=== PATIENT | male | born 1990 | race Caucasian/White ===

== ENCOUNTER 2017-01-17 21:54 | Emergency (ER) | payer BC ==
[2017-01-17 22:13] VITALS: BP 143/89
--- NOTE | 2017-01-18 00:29 | EDM.PDOC ---
<Sammy Jim O - Last Filed: 01/18/17 01:25> ED HPI GENERAL MEDICAL PROBLEM - General Chief Complaint: Behavioral/Psych Stated Complaint: SUCIDAL THOUGHTS Time Seen by Provider: 01/17/17 22:20 Source of Information: Reports: Patient History Limitations: Reports: No Limitations - History of Present Illness INITIAL COMMENTS - FREE TEXT/NARRATIVE: Patient is a 27-year-old male who presents to the ED stating he wants to escape from his life. States he has a plan to escape by swallowing all his pills at home. He has quite a list of pills for many psych conditions. States he is attending college and pursuing a degree and psych. Is taking 14 credits this summer. He feels overwhelmed at this point. Denies wanting to kill himself but notes he has a past history of trying to kill himself 8 times. Last time he attempted was January 2014 to which she ingested Trileptal, Prozac, Xanax overdosing and spent 7 days in a coma. He has been evaluated by psych for different times as an inpatient status. He has been drinking some alcohol this evening. States one 16 ounce glass of vodka, or chews, and Dr. Gandhi. Denies any recreational drug use. He smokes one pack a day. Patient is a alcoholic and is being evaluated by Caesar Chiang. He also has a history of utilizing Ativan,Xanax , and opioids. Denies having any guns at home. He does have some kitchen knives present. He does have adequate support system here including friends and family. Past medical history: Bipolar, borderline personality disorder, social phobia, Agoraphobia Current medications include trazodone, amitriptyline, Abilify, Topamax, Trileptal. - Related Data Allergies Allergy/AdvReac Type Severity Reaction Status Date / Time shellfish derived Allergy Difficulty Verified 04/28/16 07:41 Breathing bupropion HCl AdvReac Seizure Verified 04/28/16 08:31 [From Wellbutrin] zolpidem tartrate AdvReac Excitabilit Verified 04/28/16 08:31 [From Ambien] y Home Meds: Home Meds ARIPiprazole [Abilify] 2 mg PO DAILY #30 tablet 04/29/16 [Rx] FLUoxetine [PROzac] 20 mg PO DAILY #30 04/29/16 [Rx] OXcarbazepine [Trileptal] 300 mg PO BID #60 tablet 04/29/16 [Rx] traZODone 50 mg PO BEDTIME #30 tablet 04/29/16 [Rx] Past Medical History HEENT History: Reports: None Cardiovascular History: Reports: Other (See Below) Other Cardiovascular History: currently admitted with a-fib but has no history of a-fib Respiratory History: Reports: Asthma, Other (See Below) Other Respiratory History: 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 is not on medications for it. Psychiatric History: Reports: Bipolar, Suicide Attempt, Other (See Below) - Infectious Disease History Infectious Disease History: Reports: Chicken Pox - Past Surgical History HEENT Surgical History: Reports: Tonsillectomy GI Surgical History: Reports: Cholecystectomy Social & Family History - Family History Family Medical History: Noncontributory Cardiac: Reports: Hypertension Oncologic: Reports: Lymphoma - Tobacco Use Smoking Status *Q: Current Every Day Smoker Years of Tobacco use: 4 Packs/Tins Daily: 1 Used Tobacco, but Quit: No Second Hand Smoke Exposure: Yes - Caffeine Use Caffeine Use: Reports: Coffee, Soda - Alcohol Use Days Per Week of Alcohol Use: 0 Number of Drinks Per Day: 3 Total Drinks Per Week: 0 - Recreational Drug Use Recreational Drug Use: No Drug Use in Last 12 Months: Yes Recreational Drug Type: Reports: Ativan, Opium, Other (see below) Recreational Drug Use Frequency: Daily - Living Situation & Occupation Living situation: Reports: Single Occupation: Employed ED ROS GENERAL - Review of Systems Review Of Systems: See Below Constitutional: Reports: No Symptoms Respiratory: Reports: No Symptoms Cardiovascular: Reports: No Symptoms GI/Abdominal: Reports: No Symptoms Musculoskeletal: Reports: No Symptoms Psychiatric: Reports: Anxiety, Depression, Suicidal Ideation. Denies: Hallucinations, Homicidal Ideation, Mood Lability ED EXAM, BEHAVIORAL HEALTH - Physical Exam Exam: See Below Exam Limited By: No Limitations General Appearance: Alert, WD/WN, No Apparent Distress Ears: Hearing Grossly Normal Nose: Normal Inspection Throat/Mouth: Normal Voice, No Airway Compromise Head: Atraumatic, Normocephalic Neck: Normal Inspection, Supple Respiratory/Chest: No Respiratory Distress, Lungs Clear, Normal Breath Sounds Cardiovascular: Normal Peripheral Pulses, Regular Rate, Rhythm Neurological: Alert, Normal Mood/Affect, Normal Cognition, No Motor/Sensory Deficits, Oriented x 3 Psychiatric: Alert, Normal Affect, Normal Cognition, Normal Mood, Oriented, Suicidal Plan. No: Homicidal Thoughts, Suicidal Thoughts, Auditory Hallucinations, Visual Hallucinations Skin Exam: Warm, Dry, Intact, Normal color COURSE, BEHAVIORAL HEALTH COMP - Course Vital Signs: Last Vital Signs Temp 97.8 F 01/17/17 22:09 Pulse 117 H 01/17/17 22:09 Resp 16 01/17/17 22:09 BP 143/89 H 01/17/17 22:09 Pulse Ox 98 01/17/17 22:09 Orders, Labs, Meds: Active Orders 24 hr Category Date Time Status EKG Documentation Completion [RC] URGENT Care 01/17/17 22:20 Active Laboratory Tests 01/17/17 01/17/17 01/17/17 Range/Units 22:30 22:30 22:30 WBC 8.64 (4.23-9.07) K/mm3 RBC 4.98 (4.63-6.08) M/mm3 Hgb 15.3 (13.7-17.5) gm/L Hct 44.0 (40.1-51.0) % MCV 88.4 (79.0-92.2) fl MCH 30.7 (25.7-32.2) pg MCHC 34.8 (32.2-35.5) g/dl RDW Std Deviation 40.4 (35.1-43.9) fL Plt Count 228 (163-337) K/mm3 MPV 11.5 (9.4-12.3) fl Neut % (Auto) 62.0 (34.0-67.9) % Lymph % (Auto) 27.2 (21.8-53.1) % Robertson % (Auto) 7.4 (5.3-12.2) % Eos % (Auto) 2.7 (0.8-7.0) Baso % (Auto) 0.5 (0.1-1.2) % Neut # (Auto) 5.36 (1.78-5.38) K/mm3 Lymph # (Auto) 2.35 (1.32-3.57) K/mm3 Robertson # (Auto) 0.64 (0.30-0.82) K/mm3 Eos # (Auto) 0.23 (0.04-0.54) K/mm3 Baso # (Auto) 0.04 (0.01-0.08) K/mm3 Sodium 140 (136-145) mEq/L Potassium 3.2 L (3.5-5.1) mEq/L Chloride 107 (98-107) mEq/L Carbon Dioxide 23 (21-32) mEq/L Anion Gap 13.2 (5-15) BUN 5 L (7-18) mg/dL Creatinine 1.0 (0.7-1.3) mg/dL Est Cr Clr Drug Dosing 105.58 mL/min Estimated GFR (MDRD) > 60 (>60) mL/min BUN/Creatinine Ratio 5.0 L (14-18) Glucose 114 H (74-106) mg/dL Calcium 8.6 (8.5-10.1) mg/dL Total Bilirubin 0.6 (0.2-1.0) mg/dL AST 30 (15-37) U/L ALT 49 (16-63) U/L Alkaline Phosphatase 73 (46-116) U/L Total Protein 7.7 (6.4-8.2) g/dl Albumin 4.5 (3.4-5.0) g/dl Globulin 3.2 gm/dL Albumin/Globulin Ratio 1.4 (1-2) TSH 3rd Generation 2.199 (0.358-3.74) uIU/mL Urine Color (Yellow) Urine Appearance (Clear) Urine pH (5.0-8.0) Ur Specific Lamar (1.005-1.030) Urine Protein (Negative) Urine Glucose (UA) (Negative) Urine Ketones (Negative) Urine Occult Blood (Negative) Urine Nitrite (Negative) Urine Bilirubin (Negative) Urine Urobilinogen (0.2-1.0) Ur Leukocyte Esterase (Negative) Salicylates (2.8-20) mg/dL Urine Opiates Screen (NEGATIVE) Ur Buprenorphine Scrn (NEGATIVE) Ur Oxycodone Screen (NEGATIVE) Urine Methadone Screen (NEGATIVE) Ur Propoxyphene Screen (NEGATIVE) Acetaminophen 0 L (10-30) ug/mL Ur Barbiturates Screen (NEGATIVE) Ur Tricyclics Screen (NEGATIVE) Ur Phencyclidine Scrn (NEGATIVE) Ur Amphetamine Screen (NEGATIVE) U Methamphetamines Scrn (NEGATIVE) U Benzodiazepines Scrn (NEGATIVE) U Cocaine Metab Screen (NEGATIVE) U Marijuana (THC) Screen (NEGATIVE) Ethyl Alcohol 0.03 (0.00) gm% 01/17/17 01/18/17 01/18/17 Range/Units 22:30 01:00 01:15 WBC (4.23-9.07) K/mm3 RBC (4.63-6.08) M/mm3 Hgb (13.7-17.5) gm/L Hct (40.1-51.0) % MCV (79.0-92.2) fl MCH (25.7-32.2) pg MCHC (32.2-35.5) g/dl RDW Std Deviation (35.1-43.9) fL Plt Count (163-337) K/mm3 MPV (9.4-12.3) fl Neut % (Auto) (34.0-67.9) % Lymph % (Auto) (21.8-53.1) % Robertson % (Auto) (5.3-12.2) % Eos % (Auto) (0.8-7.0) Baso % (Auto) (0.1-1.2) % Neut # (Auto) (1.78-5.38) K/mm3 Lymph # (Auto) (1.32-3.57) K/mm3 Robertson # (Auto) (0.30-0.82) K/mm3 Eos # (Auto) (0.04-0.54) K/mm3 Baso # (Auto) (0.01-0.08) K/mm3 Sodium (136-145) mEq/L Potassium (3.5-5.1) mEq/L Chloride (98-107) mEq/L Carbon Dioxide (21-32) mEq/L Anion Gap (5-15) BUN (7-18) mg/dL Creatinine (0.7-1.3) mg/dL Est Cr Clr Drug Dosing mL/min Estimated GFR (MDRD) (>60) mL/min BUN/Creatinine Ratio (14-18) Glucose (74-106) mg/dL Calcium (8.5-10.1) mg/dL Total Bilirubin (0.2-1.0) mg/dL AST (15-37) U/L ALT (16-63) U/L Alkaline Phosphatase (46-116) U/L Total Protein (6.4-8.2) g/dl Albumin (3.4-5.0) g/dl Globulin gm/dL Albumin/Globulin Ratio (1-2) TSH 3rd Generation (0.358-3.74) uIU/mL Urine Color Yellow (Yellow) Urine Appearance Clear (Clear) Urine pH 7.0 (5.0-8.0) Ur Specific Lamar 1.020 (1.005-1.030) Urine Protein Negative (Negative) Urine Glucose (UA) Negative (Negative) Urine Ketones Negative (Negative) Urine Occult Blood Negative (Negative) Urine Nitrite Negative (Negative) Urine Bilirubin Negative (Negative) Urine Urobilinogen 1.0 (0.2-1.0) Ur Leukocyte Esterase Negative (Negative) Salicylates 4.1 (2.8-20) mg/dL Urine Opiates Screen Negative (NEGATIVE) Ur Buprenorphine Scrn Negative (NEGATIVE) Ur Oxycodone Screen Negative (NEGATIVE) Urine Methadone Screen Negative (NEGATIVE) Ur Propoxyphene Screen Negative (NEGATIVE) Acetaminophen (10-30) ug/mL Ur Barbiturates Screen Negative (NEGATIVE) Ur Tricyclics Screen Presumptive positive H (NEGATIVE) Ur Phencyclidine Scrn Negative (NEGATIVE) Ur Amphetamine Screen Negative (NEGATIVE) U Methamphetamines Scrn Negative (NEGATIVE) U Benzodiazepines Scrn Negative (NEGATIVE) U Cocaine Metab Screen Negative (NEGATIVE) U Marijuana (THC) Screen Negative (NEGATIVE) Ethyl Alcohol (0.00) gm% Re-Assessment/Re-Exam: Initial labs and studies include CBC, chem 14, TSH, urine drug tox, EtOH, salicylates, and acetaminophen. [address] Calles with message left for hime to call the E.D. back to evaluate a patient with suicidal ideations in the ED. EKG revealed a sinus tachycardia at rate of [address] changes noted. Labs reviewed. Arranging placement. Initiated completing appropriate paperwork. Although patient voluntarily seeked helped. He has made statements that he wants to escape by taking all his medications. Patient went to the level to consume alcohol this evening and set out all his medications in preparation to take prior to seeking help. I do not believe patient is safe to be discharged home and/or be transported to a psychiatric facility with family member/friend. Patient has attempted to kill himself 8 times in the past. Four of which required inpatient treatment. Dr. Ryan has agreed to accept care since it is the end of my shift. Departure - Departure Disposition: DC/Tfer to Psych Hosp/Unit 65 Clinical Impression: Suicidal ideation Depression Qualifiers: Depression Type: other depression Qualified Code(s): F32.89 - Other specified depressive episodes - Discharge Information Forms: ED Department Discharge Additional Instructions: Zain Loredo will come to transport the patient over to [facility] for further evaluation and treatment, if the patient is required to stay in long-term for a few hours until they can find appropriate transport that will be okay, Dr. Reza is the accepting physician over at [facility] <Osei Ryan - Last Filed: 01/18/17 03:01> COURSE, BEHAVIORAL HEALTH COMP - Course Medical Clearance: 01/18/17 02:56 We spoke to the individuals at [facility] and they have agreed to accept the patient in transport for further evaluation and treatment. I spoke with [facility] they will calm to get the individual for transport to [facility]. The patient might require some time in long-term until they can get her transport [facility] but that is okay. He has been committed and this is not a voluntary committal but an involuntary committal since he is actively suicidal with a plan and he is tried to commit suicide 8 times in the past. He has been drinking some this evening but does not appear to be intoxicated. Departure - Departure Time of Disposition: 02:57 Condition: Good
== END 2017-01-18 03:50 ==
LOC: JD.ED 21:54
DX: F32.89 Other specified depressive episodes (principal); R45.851 Suicidal ideations; J45.909 Unspecified asthma, uncomplicated; F17.210 Nicotine dependence, cigarettes, uncomplicated; Z91.013 Allergy to seafood; Z79.899 Other long term (current) drug therapy; Z98.890 Other specified postprocedural states; Z90.49 Acquired absence of other specified parts of digestive tract
CPT/HCPCS: 36415; 80053; 80306; 81003; 84443; 85025; 93005; 99285; G0480; 99284

== ENCOUNTER 2017-04-15 05:34 | Emergency (ER) | payer BC ==
[2017-04-15 05:44] VITALS: BP 122/57
[2017-04-15] MEDS ORDERED: diphenhydrAMINE 50 MG Cap PO ONE (06:09)
--- NOTE | 2017-04-15 06:12 | EDM.PDOC ---
ED HPI GENERAL MEDICAL PROBLEM - General Chief Complaint: Allergic Reaction Stated Complaint: poss allergic reaction Time Seen by Provider: 04/15/17 05:44 Source of Information: Reports: Patient, RN Notes Reviewed History Limitations: Reports: No Limitations - History of Present Illness INITIAL COMMENTS - FREE TEXT/NARRATIVE: The patient states that he took a Marcelino Man multivitamin and a supplement powder around 04:15 this morning, then around 04:30 developed intense burning sensation and pruritus to his bilateral forearms and feet. The patient denies dyspnea, wheezing, or oral swelling. This is the first time that he has taken either the multivitamin or supplement. No prior similar symptoms. The patient's PCP is Madison Velásquez. Generalized Pain Score (Numeric/FACES): 4 - Related Data Allergies Allergy/AdvReac Type Severity Reaction Status Date / Time shellfish derived Allergy Difficulty Verified 04/28/16 07:41 Breathing bupropion HCl AdvReac Seizure Verified 04/28/16 08:31 [From Wellbutrin] zolpidem tartrate AdvReac Excitabilit Verified 04/28/16 08:31 [From Ambien] y Past Medical History Cardiovascular History: Reports: Afib (paroxysmal) Gastrointestinal History: Reports: GERD (untreated) Neurological History: Reports: Seizure (associated with alcohol and drug abuse) , Other (See Below) (Left footdrop) Psychiatric History: Reports: Anxiety, Depression, Panic Attack, Suicide Attempt - Infectious Disease History Infectious Disease History: Reports: Chicken Pox - Past Surgical History HEENT Surgical History: Reports: Tonsillectomy GI Surgical History: Reports: Cholecystectomy Social & Family History - Family History Family Medical History: Noncontributory Cardiac: Reports: Hypertension Oncologic: Reports: Lymphoma - Tobacco Use Smoking Status *Q: Current Every Day Smoker Years of Tobacco use: 7 Packs/Tins Daily: 1 - Caffeine Use Caffeine Use: Reports: Coffee - Alcohol Use Alcohol Use History: Yes Days Per Week of Alcohol Use: 0 Number of Drinks Per Day: 3 Total Drinks Per Week: 0 Alcohol Use Frequency: Socially - Recreational Drug Use Recreational Drug Use: Yes Drug Use in Last 12 Months: Yes Recreational Drug Type: Reports: Benzodiazepines, Oxycodone, Vicodin Recreational Drug Use Frequency: Binges - Living Situation & Occupation Living situation: Reports: Single, Alone 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) ED ROS GENERAL - Review of Systems Review Of Systems: See Below Constitutional: Reports: No Symptoms HEENT: Reports: No Symptoms Respiratory: Reports: No Symptoms Cardiovascular: Reports: No Symptoms Endocrine: Reports: No Symptoms GI/Abdominal: Reports: No Symptoms : Reports: No Symptoms Musculoskeletal: Reports: No Symptoms Skin: Reports: No Symptoms Neurological: Reports: No Symptoms Psychiatric: Reports: No Symptoms Hematologic/Lymphatic: Reports: No Symptoms Immunologic: Reports: No Symptoms ED EXAM, SKIN/RASH Exam: See Below Exam Limited By: No Limitations General Appearance: Alert, WD/WN, No Apparent Distress Eye Exam: Bilateral Eye: Normal Inspection Ears: Normal External Exam, Hearing Grossly Normal Nose: Normal Inspection, No Blood Throat/Mouth: Normal Inspection, Normal Lips, Normal Teeth, Normal Gums, Normal Oropharynx (no uvular swelling), Normal Voice, No Airway Compromise Head: Atraumatic, Normocephalic Neck: Normal Inspection, Supple, Non-Tender, Full Range of Motion. No: Lymphadenopathy (L), Lymphadenopathy (R) Respiratory/Chest: No Respiratory Distress, Lungs Clear, Normal Breath Sounds, No Accessory Muscle Use Cardiovascular: Normal Peripheral Pulses, Regular Rate, Rhythm, No Gallop, No JVD, No Murmur, No Rub Peripheral Pulses: 4+: Radial (L), Radial (R) GI/Abdominal: Normal Bowel Sounds, Soft, Non-Tender, No Organomegaly, No Distention, No Abnormal Bruit, No Mass (Male) Exam: Deferred Rectal (Males) Exam: Deferred Back Exam: Normal Inspection, Full Range of Motion, NT Extremities: Normal Inspection, Normal Range of Motion, No Pedal Edema, Normal Capillary Refill Neurological: Alert, Oriented, Normal Cognition, No Motor/Sensory Deficits Psychiatric: Normal Affect Skin: Warm, Dry, Intact, Normal Color, No Rash (No visible skin lesions, such as urticaria or erythema) Course - Vital Signs Last Recorded V/S: Last Vital Signs Temp 36.7 C 04/15/17 05:40 Pulse 92 04/15/17 05:40 Resp 18 04/15/17 05:40 BP 122/57 L 04/15/17 05:40 Pulse Ox 95 04/15/17 05:40 - Orders/Labs/Meds Meds: Medications Discontinued Medications Generic Name Dose Route Start Last Admin Trade Name Freq PRN Reason Stop Dose Admin Diphenhydramine HCl 50 mg 04/15/17 06:09 04/15/17 06:13 Benadryl PO 04/15/17 06:10 50 mg ONETIME ONE Administration - Re-Assessments/Exams Free Text/Narrative Re-Assessment/Exam: 04/15/17 06:06 The patient has localized pruritus with no visible skin eruptions. This suggests neuropathic or psychogenic itch. This is not an allergic reaction. I'm going to recommend that he take an [id number] antihistamine, apply cold packs to the affected areas, and, most importantly, discontinue taking the multivitamins and supplement. Departure - Departure Time of Disposition: :09 Disposition: Home, Self-Care 01 Condition: Good Clinical Impression: Pruritus - Discharge Information Referrals: Madison Velásquez PA [Primary Care Provider] - Forms: ED Department Discharge Additional Instructions: You were seen in the emergency room for a burning sensation and itchiness to your arms and feet. The cause of your itchiness is not clear, but it is MOST LIKELY related to your taking of the multivitamin and/or supplement. You were given Benadryl in the emergency room. If your symptoms continue, you may take [id number] Benadryl or Claritin as directed on the package. Try to avoid heat. Cold packs to affected areas may help. It is important that you DISCONTINUE taking the multivitamin and supplements. Follow-up with your PCP, Madison Velásquez, as needed. If any other problems, these do not hesitate to return to the ER.
== END 2017-04-15 06:27 | disposition home or self-care (01) ==
LOC: JD.ED 05:34
DX: L29.9 Pruritus, unspecified (principal); F17.210 Nicotine dependence, cigarettes, uncomplicated; I48.0 Paroxysmal atrial fibrillation; K21.9 Gastro-esophageal reflux disease without esophagitis; F41.0 Panic disorder [episodic paroxysmal anxiety]; F32.9 Major depressive disorder, single episode, unspecified; Z90.49 Acquired absence of other specified parts of digestive tract; Z98.890 Other specified postprocedural states; Z91.013 Allergy to seafood; Z88.8 Allergy status to other drugs, medicaments and biological substances
CPT/HCPCS: 99283; A9270; 99282

== ENCOUNTER 2017-06-11 20:18 | Emergency (ER) | payer SELFPAY ==
[2017-06-11] MEDS ORDERED: Sodium Chloride 0.9% 10 ML Syringe FLUSH PRN (20:27)
[2017-06-11] MEDS ORDERED: Sodium Chloride 0.9% 1,000 ML IV SCH (20:30)
[2017-06-11] MEDS ORDERED: Metoclopramide 10 MG/2 ML SDV IVPUSH ONE (21:27)
[2017-06-11 21:39] LABS: ACETAMINOPHEN 0 ug/mL (10-30)
--- NOTE | 2017-06-11 22:28 | EDM.PDOCBH ---
ED HPI GENERAL MEDICAL PROBLEM - General Chief Complaint: Behavioral/Psych Stated Complaint: DIPTI ANTHONY Time Seen by Provider: 06/11/17 20:23 Source of Information: Reports: Patient, EMS History Limitations: Reports: Intoxication - History of Present Illness INITIAL COMMENTS - FREE TEXT/NARRATIVE: The patient presents by [facility] for an overdose. He took abilify, lexapro and zofran. There was a total of 30 pills of all of them. He did not want to hurt himself he just wanted to get away for awhile. He was also drinking alcohol. He has tried to hurt himself in the past. He has a history of depression and he sees a psychologist for that. He did not cut himself or do anything else. He has no other medical problems. He did this at 1945. EMS gave him some activated charcoal to drink. He says he feels sleepy now. Onset: Sudden Duration: Minutes: (45) Severity: Moderate Improves with: Reports: None Worsens with: Reports: None Associated Symptoms: Reports: No Other Symptoms Treatments [employer]NCIL DIRECTOR: Reports: Other (see below) Other Treatments [employer]UM[employer] COUNCIL DIRECTOR: charcoal - Related Data Allergies Allergy/AdvReac Type Severity Reaction Status Date / Time shellfish derived Allergy Difficulty Verified 04/28/16 07:41 Breathing bupropion HCl AdvReac Seizure Verified 04/28/16 08:31 [From Wellbutrin] zolpidem tartrate AdvReac Excitabilit Verified 04/28/16 08:31 [From Ambien] y Home Meds: Home Meds ARIPiprazole [Abilify] 10 mg PO DAILY 06/11/17 [History] Aspirin [Halfprin] 81 mg PO ASDIRECTED PRN 06/11/17 [History] Escitalopram [Lexapro] 10 mg PO BEDTIME 06/11/17 [History] Ondansetron [Zofran] 4 mg PO TID PRN 06/11/17 [History] traZODone 100 mg PO BEDTIME 06/11/17 [History] Past Medical History HEENT History: Reports: None Cardiovascular History: Reports: Afib Other Cardiovascular History: currently admitted with a-fib but has no history of a-fib Respiratory History: Reports: Asthma Other Respiratory History: 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 is not on medications for it. Psychiatric History: Reports: Addiction, Anxiety, Depression, Panic Attack, Suicide Attempt - Infectious Disease History Infectious Disease History: Reports: Chicken Pox - Past Surgical History HEENT Surgical History: Reports: Tonsillectomy GI Surgical History: Reports: Cholecystectomy Social & Family History - Family History Family Medical History: Noncontributory Cardiac: Reports: Hypertension Oncologic: Reports: Lymphoma - Tobacco Use Smoking Status *Q: Current Every Day Smoker Years of Tobacco use: 4 Packs/Tins Daily: 1 Used Tobacco, but Quit: No Second Hand Smoke Exposure: Yes - Caffeine Use Caffeine Use: Reports: Coffee, Energy Drinks, Soda, Tea - Alcohol Use Days Per Week of Alcohol Use: 0 Number of Drinks Per Day: 3 Total Drinks Per Week: 0 - Recreational Drug Use Recreational Drug Use: Yes Drug Use in Last 12 Months: Yes Recreational Drug Type: Reports: Benzodiazepines, Oxycodone, Vicodin Recreational Drug Use Frequency: Binges - Living Situation & Occupation Living situation: Reports: Single, Alone 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) ED ROS GENERAL - Review of Systems Review Of Systems: See Below Constitutional: Reports: No Symptoms HEENT: Reports: No Symptoms Respiratory: Reports: No Symptoms Cardiovascular: Reports: No Symptoms Endocrine: Reports: No Symptoms GI/Abdominal: Reports: No Symptoms : Reports: No Symptoms Musculoskeletal: Reports: No Symptoms ED EXAM, BEHAVIORAL HEALTH - Physical Exam Exam: See Below Exam Limited By: No Limitations General Appearance: Alert, No Apparent Distress Ears: Normal External Exam Nose: Normal Inspection Head: Atraumatic, Normocephalic Neck: Normal Inspection Respiratory/Chest: No Respiratory Distress, Lungs Clear, Normal Breath Sounds Cardiovascular: Regular Rate, Rhythm, No Edema, No Murmur GI/Abdominal: Soft, Non-Tender, No Organomegaly, No Mass Extremities: Normal Inspection Neurological: Alert, No Motor/Sensory Deficits, Oriented x 3 EKG INTERPRETATION EKG Date: 06/11/17 Time: 20:41 Rhythm: NSR Rate (Beats/Min): 96 [place]: Normal P-Wave: Present QRS: Normal ST-T: Normal QT: Normal COURSE, BEHAVIORAL HEALTH COMP - Course Vital Signs: Last Vital Signs Temp 99.3 F 06/11/17 20:30 Pulse 110 H 06/11/17 20:30 Resp 28 H 06/11/17 20:30 BP 135/83 06/11/17 20:30 Pulse Ox 96 06/11/17 20:30 Orders, Labs, Meds: Active Orders 24 hr Category Date Time Status Cardiac Monitoring [RC] . DIRECTED Care 06/11/17 20:28 Active EKG Documentation Completion [RC] ASDIRECTED Care 06/11/17 21:29 Active EKG Documentation Completion [RC] ASDIRECTED Care 06/12/17 00:17 Active EKG Documentation Completion [RC] STAT Care 06/11/17 20:29 Active Peripheral IV Care [RC] . DIRECTED Care 06/11/17 20:29 Active Sodium Chloride 0.9% [Normal Saline] 1,000 ml Med 06/11/17 20:30 Active IV ASDIRECTED Sodium Chloride 0.9% [Saline Flush] Med 06/11/17 20:27 Active 10 ml FLUSH ASDIRECTED PRN Peripheral IV Insertion Adult [OM.PC] Stat Oth 06/11/17 20:27 Ordered EKG 12 Lead [EK] Stat Ther 06/11/17 21:29 Ordered EKG 12 Lead [EK] Stat Ther 06/12/17 00:17 Ordered Medication Orders Sodium Chloride (Normal Saline) 1,000 mls @ 125 mls/hr IV ASDIRECTED SU Last Admin: 06/11/17 20:58 Dose: 125 mls/hr Sodium Chloride (Saline Flush) 10 ml FLUSH ASDIRECTED PRN PRN Reason: Keep Vein Open Last Admin: 06/11/17 20:58 Dose: 10 ml Laboratory Tests 06/11/17 06/11/17 06/11/17 Range/Units 20:50 20:55 20:55 WBC 8.17 (4.23-9.07) K/mm3 RBC 4.95 (4.63-6.08) M/mm3 Hgb 14.7 (13.7-17.5) gm/L Hct 42.9 (40.1-51.0) % MCV 86.7 (79.0-92.2) fl MCH 29.7 (25.7-32.2) pg MCHC 34.3 (32.2-35.5) g/dl RDW Std Deviation 39.8 (35.1-43.9) fL Plt Count 207 (163-337) K/mm3 MPV 10.3 (9.4-12.3) fl Neut % (Auto) 50.3 (34.0-67.9) % Lymph % (Auto) 37.3 (21.8-53.1) % [place] % (Auto) 8.9 (5.3-12.2) % Eos % (Auto) 2.8 (0.8-7.0) Baso % (Auto) 0.6 (0.1-1.2) % Neut # (Auto) 4.10 (1.78-5.38) K/mm3 Lymph # (Auto) 3.05 (1.32-3.57) K/mm3 [place] # (Auto) 0.73 (0.30-0.82) K/mm3 Eos # (Auto) 0.23 (0.04-0.54) K/mm3 Baso # (Auto) 0.05 (0.01-0.08) K/mm3 Manual Slide Review Abnormal smear Sodium 142 (136-145) mEq/L Potassium 3.3 L (3.5-5.1) mEq/L Chloride 104 (98-107) mEq/L Carbon Dioxide 26 (21-32) mEq/L Anion Gap 15.3 H (5-15) BUN 13 (7-18) mg/dL Creatinine 0.9 (0.7-1.3) mg/dL Est Cr Clr Drug Dosing 117.31 mL/min Estimated GFR (MDRD) > 60 (>60) mL/min BUN/Creatinine Ratio 14.4 (14-18) Glucose 90 (74-106) mg/dL Calcium 9.0 (8.5-10.1) mg/dL Total Bilirubin 0.7 (0.2-1.0) mg/dL AST 33 (15-37) U/L ALT 55 (16-63) U/L Alkaline Phosphatase 60 (46-116) U/L Total Protein 7.5 (6.4-8.2) g/dl Albumin 4.2 (3.4-5.0) g/dl Globulin 3.3 gm/dL Albumin/Globulin Ratio 1.3 (1-2) Salicylates (2.8-20) mg/dL Urine Opiates Screen Negative (NEGATIVE) Ur Buprenorphine Scrn Negative (NEGATIVE) Ur Oxycodone Screen Negative (NEGATIVE) Urine Methadone Screen Negative (NEGATIVE) Ur Propoxyphene Screen Negative (NEGATIVE) Acetaminophen 0 L (10-30) ug/mL Ur Barbiturates Screen Negative (NEGATIVE) Ur Tricyclics Screen Negative (NEGATIVE) Ur Phencyclidine Scrn Negative (NEGATIVE) Ur Amphetamine Screen Negative (NEGATIVE) U Methamphetamines Scrn Negative (NEGATIVE) U Benzodiazepines Scrn Negative (NEGATIVE) U Cocaine Metab Screen Negative (NEGATIVE) U Marijuana (THC) Screen Negative (NEGATIVE) Ethyl Alcohol 0.15 (0.00) gm% 06/11/17 06/12/17 Range/Units 20:55 05:28 WBC (4.23-9.07) K/mm3 RBC (4.63-6.08) M/mm3 Hgb (13.7-17.5) gm/L Hct (40.1-51.0) % MCV (79.0-92.2) fl MCH (25.7-32.2) pg MCHC (32.2-35.5) g/dl RDW Std Deviation (35.1-43.9) fL Plt Count (163-337) K/mm3 MPV (9.4-12.3) fl Neut % (Auto) (34.0-67.9) % Lymph % (Auto) (21.8-53.1) % [place] % (Auto) (5.3-12.2) % Eos % (Auto) (0.8-7.0) Baso % (Auto) (0.1-1.2) % Neut # (Auto) (1.78-5.38) K/mm3 Lymph # (Auto) (1.32-3.57) K/mm3 [place] # (Auto) (0.30-0.82) K/mm3 Eos # (Auto) (0.04-0.54) K/mm3 Baso # (Auto) (0.01-0.08) K/mm3 Manual Slide Review Sodium (136-145) mEq/L Potassium (3.5-5.1) mEq/L Chloride (98-107) mEq/L Carbon Dioxide (21-32) mEq/L Anion Gap (5-15) BUN (7-18) mg/dL Creatinine (0.7-1.3) mg/dL Est Cr Clr Drug Dosing mL/min Estimated GFR (MDRD) (>60) mL/min BUN/Creatinine Ratio (14-18) Glucose (74-106) mg/dL Calcium (8.5-10.1) mg/dL Total Bilirubin (0.2-1.0) mg/dL AST (15-37) U/L ALT (16-63) U/L Alkaline Phosphatase (46-116) U/L Total Protein (6.4-8.2) g/dl Albumin (3.4-5.0) g/dl Globulin gm/dL Albumin/Globulin Ratio (1-2) Salicylates 2.6 L 1.5 L (2.8-20) mg/dL Urine Opiates Screen (NEGATIVE) Ur Buprenorphine Scrn (NEGATIVE) Ur Oxycodone Screen (NEGATIVE) Urine Methadone Screen (NEGATIVE) Ur Propoxyphene Screen (NEGATIVE) Acetaminophen (10-30) ug/mL Ur Barbiturates Screen (NEGATIVE) Ur Tricyclics Screen (NEGATIVE) Ur Phencyclidine Scrn (NEGATIVE) Ur Amphetamine Screen (NEGATIVE) U Methamphetamines Scrn (NEGATIVE) U Benzodiazepines Scrn (NEGATIVE) U Cocaine Metab Screen (NEGATIVE) U Marijuana (THC) Screen (NEGATIVE) Ethyl Alcohol (0.00) gm% Medications Generic Name Dose Route Start Last Admin Trade Name Freq PRN Reason Stop Dose Admin Sodium Chloride 1,000 mls @ 125 mls/hr 06/11/17 20:30 06/11/17 20:58 Normal Saline IV 125 mls/hr ASDIRECTED SU Administration Sodium Chloride 10 ml 06/11/17 20:27 06/11/17 20:58 Saline Flush FLUSH 10 ml ASDIRECTED PRN Administration Keep Vein Open Discontinued Medications Generic Name Dose Route Start Last Admin Trade Name Freq PRN Reason Stop Dose Admin Metoclopramide HCl 10 mg 06/11/17 21:27 06/11/17 22:09 Reglan IVPUSH 06/11/17 21:28 10 mg ONETIME ONE Administration Re-Assessment/Re-Exam: I ordered an IV NS, labs, UDS, and EKG. His EKG shows a NSR with no acute changes. His CBC was negative. His K was a little low at 3.3. His salicylated were normal at 2.6. His tylenol was negative. His UDS was negative. His ETOH was elevated at 0.15. I will observe him for awhile in the ER. My nurse noticed his rhythm changes and he went into A-fib at a rate of 103 with no acute changes. He has a history of it. He converted to a NSR with no acute changes. Poison control wanted a repeat aspirin level and that was normal. I will discharge him home. Departure - Departure Time of Disposition: 06:55 Disposition: Home, Self-Care 01 Condition: Good Clinical Impression: Alcohol abuse Accidental drug overdose Qualifiers: Encounter type: initial encounter Qualified Code(s): T50.901A - Poisoning by unspecified drugs, medicaments and biological substances, accidental ( unintentional), initial encounter - Discharge Information Referrals: Madison Velásquez PA [Primary Care Provider] - 1 Week Forms: ED Department Discharge Additional Instructions: Take your medication as prescribed. Follow up with your psychologist and provider. Please return if worse. - My Orders Last 24 Hours: My Active Orders 06/11/17 20:27 Sodium Chloride 0.9% [Saline Flush] 10 ml FLUSH ASDIRECTED PRN Peripheral IV Insertion Adult [OM.PC] Stat 06/11/17 20:28 Cardiac Monitoring [RC] . DIRECTED 06/11/17 20:29 EKG Documentation Completion [RC] STAT Peripheral IV Care [RC] . DIRECTED 06/11/17 20:30 Sodium Chloride 0.9% [Normal Saline] 1,000 ml IV ASDIRECTED 06/11/17 21:29 EKG Documentation Completion [RC] ASDIRECTED EKG 12 Lead [EK] Stat 06/12/17 00:17 EKG Documentation Completion [RC] ASDIRECTED EKG 12 Lead [EK] Stat - Assessment/Plan Last 24 Hours: My Active Orders 06/11/17 20:27 Sodium Chloride 0.9% [Saline Flush] 10 ml FLUSH ASDIRECTED PRN Peripheral IV Insertion Adult [OM.PC] Stat 06/11/17 20:28 Cardiac Monitoring [RC] . DIRECTED 06/11/17 20:29 EKG Documentation Completion [RC] STAT Peripheral IV Care [RC] . DIRECTED 06/11/17 20:30 Sodium Chloride 0.9% [Normal Saline] 1,000 ml IV ASDIRECTED 06/11/17 21:29 EKG Documentation Completion [RC] ASDIRECTED EKG 12 Lead [EK] Stat 06/12/17 00:17 EKG Documentation Completion [RC] ASDIRECTED EKG 12 Lead [EK] Stat
[2017-06-12 08:09] VITALS: BP 122/60
== END 2017-06-12 07:18 | disposition home or self-care (01) ==
LOC: SUPCPDRO 20:18 → JD.ED 20:18
DX: T45.0X1A Poisoning by antiallergic and antiemetic drugs, accidental (unintentional), initial encounter (principal); T43.221A Poisoning by selective serotonin reuptake inhibitors, accidental (unintentional), initial encounter; T43.591A Poisoning by other antipsychotics and neuroleptics, accidental (unintentional), initial encounter; F10.10 Alcohol abuse, uncomplicated; K21.9 Gastro-esophageal reflux disease without esophagitis; F41.0 Panic disorder [episodic paroxysmal anxiety]; F32.9 Major depressive disorder, single episode, unspecified; F17.210 Nicotine dependence, cigarettes, uncomplicated; Z79.82 Long term (current) use of aspirin; Z79.899 Other long term (current) drug therapy; Y90.0 Blood alcohol level of less than 20 mg/100 ml
CPT/HCPCS: 36415; 80053; 80306; 85025; 93005; 96361; 96374; 99285; G0480; J2765; J7040; J7050; 93010

== ENCOUNTER 2017-11-20 19:55 | Emergency (ER) | payer BC ==
[2017-11-20 20:04] VITALS: BP 174/71
--- NOTE | 2017-11-20 20:24 | EDM.PDOCBH ---
ED HPI GENERAL MEDICAL PROBLEM - General Chief Complaint: Behavioral/Psych Stated Complaint: SUICIDE THOUGHTS Time Seen by Provider: 11/20/17 20:08 Source of Information: Reports: Patient History Limitations: Reports: No Limitations - History of Present Illness INITIAL COMMENTS - FREE TEXT/NARRATIVE: The patient states that he has a history of depression, anxiety, and bipolar affect disorder. He has attempted suicide on several occasions in the past, once seriously, and has been psychiatrically hospitalized 4 or 5 times for depression and suicidal ideation. He states that he has been feeling depressed, although not exactly suicidal, this week. He states that he has no plan, and does not feel that he needed psychiatric admission. Ordinarily, he would talk to his counselor, Caesar Chiang, however, she is currently out of town. He has an appointment to see his Psychiatrist, Dr. Alyssa Kellogg, on Saturday, November 25, 2017. The patient acknowledges that he has a history of both drug and alcohol abuse. He states that he drank a couple margaritas and a beer earlier tonight. No recent illnesses. - Related Data Allergies Allergy/AdvReac Type Severity Reaction Status Date / Time shellfish derived Allergy Difficulty Verified 11/20/17 20:04 Breathing bupropion HCl AdvReac Seizure Verified 11/20/17 20:04 [From Wellbutrin] zolpidem tartrate AdvReac Excitabilit Verified 11/20/17 20:04 [From Ambien] y Home Meds: Home Meds ARIPiprazole [Abilify] 5 mg PO DAILY 06/11/17 [History] Escitalopram [Lexapro] 10 mg PO BEDTIME 06/11/17 [History] traZODone 100 mg PO BEDTIME 06/11/17 [History] Past Medical History Cardiovascular History: Reports: Afib (paroxysmal) Respiratory History: Reports: Asthma (exercise-induced) Gastrointestinal History: Reports: GERD Neurological History: Reports: Seizure (Alcohol and drug related) Psychiatric History: Reports: Addiction, Anxiety, Bipolar, Depression, Panic Attack, Suicide Attempt - Infectious Disease History Infectious Disease History: Reports: Chicken Pox - Past Surgical History HEENT Surgical History: Reports: Tonsillectomy GI Surgical History: Reports: Cholecystectomy Social & Family History - Family History Family Medical History: Noncontributory Cardiac: Reports: Hypertension Oncologic: Reports: Lymphoma - Tobacco Use Smoking Status *Q: Current Every Day Smoker Years of Tobacco use: 5 Packs/Tins Daily: 0.8 - Caffeine Use Caffeine Use: Reports: Coffee - Alcohol Use Alcohol Use History: Yes Days Per Week of Alcohol Use: 0 Number of Drinks Per Day: 3 Total Drinks Per Week: 0 Alcohol Use Frequency: Binges - Recreational Drug Use Recreational Drug Use: Yes Drug Use in Last 12 Months: Yes Recreational Drug Type: Reports: Benzodiazepines (last around 2014), Other (see below) (Opioids - last around 2015) Recreational Drug Use Frequency: Binges - Living Situation & Occupation Living situation: Reports: Single, Alone 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 ED EXAM, BEHAVIORAL HEALTH - Physical Exam Exam: See Below Exam Limited By: No Limitations General Appearance: Alert, WD/WN, No Apparent Distress Ears: Normal External Exam, Hearing Grossly Normal Nose: Normal Inspection, No Blood Throat/Mouth: Normal Inspection, Normal Lips, Normal Voice, No Airway Compromise Head: Atraumatic, Normocephalic Neck: Normal Inspection, Full Range of Motion Respiratory/Chest: No Respiratory Distress, Lungs Clear, Normal Breath Sounds, No Accessory Muscle Use Cardiovascular: Normal Peripheral Pulses, Regular Rate, Rhythm, No Gallop, No JVD, No Murmur, No Rub GI/Abdominal: Normal Bowel Sounds, Soft, No Organomegaly, No Distention, No Abnormal Bruit, No Mass (Male) Exam: Deferred Rectal (Males) Exam: Deferred Back Exam: Normal Inspection, Full Range of Motion, NT Extremities: Normal Inspection, Normal Range of Motion, No Pedal Edema, Normal Capillary Refill Neurological: Alert, Normal Cognition, No Motor/Sensory Deficits, Oriented x 3 Psychiatric: Normal Affect, Tearful (occasionally), Suicidal Thoughts. No: Non- Communicative, Poor Eye Contact, Uncooperative, Withdrawn, Flight of Ideas, Suicidal Plan, Auditory Hallucinations, Visual Hallucinations Skin Exam: Warm, Dry, Intact, Normal color, No rash COURSE, BEHAVIORAL HEALTH COMP - Course Vital Signs: Last Vital Signs Temp 37.3 C 11/20/17 20:01 Pulse 118 H 11/20/17 20:01 Resp 16 11/20/17 20:01 BP 174/71 H 11/20/17 20:01 Pulse Ox 99 11/20/17 20:01 Medical Clearance: 11/20/17 20:24 As the patient is not actively suicidal, and does not himself feel that he needs psychiatric admission, there is no indication for emergency psychiatric admission, therefore medical clearance is not required. We will attempt to reach Dr. Calles - perhaps he will be able to talk with the patient. 11/20/17 20:[address] Calles at 20:31. He will Skype in to conduct a face-to- face interview with the patient in about 15 minutes. 11/20/17 21:[address] Calles at 21:17. He just finished talking with the patient. He does not feel that the patient requires psychiatric hospitalization. He recommends that we increase the patient's Abilify from 5 mg daily to 10 mg daily, the Lexapro from 10 mg QHS to 20 mg QHS, and the trazodone from 100 mg QHS to 150 mg QHS. I will need to talk to the patient to see if he needs refills of any of these meds to last him until he sees his Psychiatrist on 11/25/2017. 11/20/17 21:22 The patient states that he has enough of his medications to last until he sees his Psychiatrist on November 25. I will discharge him home. Departure - Departure Time of Disposition: 21:23 Disposition: Home, Self-Care 01 Condition: Fair Clinical Impression: Depression Qualifiers: Depression Type: other depression Qualified Code(s): F32.89 - Other specified depressive episodes - Discharge Information Referrals: Margarito Nielsen [Primary Care Provider] - Alyssa Kellogg MD [Ordering Only Provider] - Forms: ED Department Discharge Additional Instructions: You were seen in the emergency room for feeling depressed. You were able to talk with Dr. Calles over Skype. He recommends that you: Increase your Abilify from 5 mg daily to 10 mg daily Increase your Lexapro from 10 mg at bedtime to 20 mg at bedtime Increase your trazodone from 100 mg at bedtime to 150 mg at bedtime Follow-up with your Psychiatrist, Dr. Kellogg, at your previously scheduled appointment on November 25, 2017. If any other problems, including worsening depression or suicidal ideation, please do not hesitate to return to the ER.
== END 2017-11-20 21:39 | disposition home or self-care (01) ==
LOC: JD.ED 19:55
DX: F32.89 Other specified depressive episodes (principal); J45.909 Unspecified asthma, uncomplicated; F17.210 Nicotine dependence, cigarettes, uncomplicated; Z91.013 Allergy to seafood; Z88.8 Allergy status to other drugs, medicaments and biological substances; Z79.899 Other long term (current) drug therapy
CPT/HCPCS: 99283; 99285

== ENCOUNTER 2018-01-30 10:57 | Emergency (ER) | payer BC ==
[2018-01-30 11:15] VITALS: BP 156/76
[2018-01-30] MEDS ORDERED: Haloperidol Lactate 5 MG/ML SDV IM ONE (11:36)
[2018-01-30] MEDS ORDERED: Ondansetron 4 MG/2 ML SDV IVPUSH ONE (11:36)
[2018-01-30] MEDS ORDERED: Benztropine 1 MG Tab PO STA (11:36)
--- NOTE | 2018-01-30 11:40 | EDM.PDOC ---
ED HPI GENERAL MEDICAL PROBLEM - General Chief Complaint: Headache Stated Complaint: HEADACHE x 4 DAYS Time Seen by Provider: 01/30/18 11:17 Source of Information: Reports: Patient History Limitations: Reports: No Limitations - History of Present Illness INITIAL COMMENTS - FREE TEXT/NARRATIVE: The patient states that he has had a headache for the past 4 days. It is felt across his forehead, and the patient describes it as a constant throbbing. He states that at this time it is not severe, although at times it is. He states that he has had nausea and dry heaves. He denies photophobia. He states that he has slight photophobia. No visual changes, such as blurry vision, wavy lines, or flashes of light. No neuro symptoms, such as tingling, numbness, or weakness. The patient states that he has a history of migraines, but that this headache is different than those. Upon closer questioning, however, the patient states that he had been prescribed Imitrex for his previous migraines, which he admits did not help his headaches, other than to make him sick to his stomach, suggesting that the previous headaches that the patient referred to as migraines , may not have been migraines. The patient states that he took one tablet of Advil yesterday, then another one last evening. He states that he was seen at the walk-in clinic yesterday, and given 2 injections - one of Toradol, and another of a nausea medicine, then instructed that if that did not work, to "go to the ER". The last imaging study of the patient's head was around 2013. The patient's PCP is Dr. Nielsen. Frontal Headache Pain Score (Numeric/FACES): 2 - Related Data Allergies Allergy/AdvReac Type Severity Reaction Status Date / Time shellfish derived Allergy Difficulty Verified 11/20/17 20:04 Breathing bupropion HCl AdvReac Seizure Verified 11/20/17 20:04 [From Wellbutrin] zolpidem tartrate AdvReac Excitabilit Verified 11/20/17 20:04 [From Ambien] y Home Meds: Home Meds ARIPiprazole [Abilify] 5 mg PO DAILY 06/11/17 [History] Escitalopram [Lexapro] 10 mg PO BEDTIME 06/11/17 [History] traZODone 100 mg PO BEDTIME 06/11/17 [History] Rizatriptan Benzoate [Rizatriptan] 1 tab PO Q2H PRN #3 tab.rapdis 01/30/18 [Rx] Past Medical History Cardiovascular History: Reports: Afib (paroxysmal) Respiratory History: Reports: Asthma (exercise-induced) Gastrointestinal History: Reports: GERD Neurological History: Reports: Migraines, Seizure (alcohol & drug related), Other (See Below) (Left footdrop x 2014 ICU admission) Psychiatric History: Reports: Addiction (Alcohol, benzodiazepines), Anxiety, Bipolar, Depression, Panic Attack, Suicide Attempt - Infectious Disease History Infectious Disease History: Reports: Chicken Pox - Past Surgical History HEENT Surgical History: Reports: Tonsillectomy GI Surgical History: Reports: Cholecystectomy Social & Family History - Family History Family Medical History: Noncontributory Cardiac: Reports: Hypertension Oncologic: Reports: Lymphoma - Tobacco Use Smoking Status *Q: Current Every Day Smoker Years of Tobacco use: 8 Packs/Tins Daily: 1 - Caffeine Use Caffeine Use: Reports: Coffee, Soda - Alcohol Use Alcohol Use History: Yes Date/Time of Last Drink Comment: Alcoholic. Last drink around September 2017 Alcohol Use Frequency: Binges - Recreational Drug Use Recreational Drug Use: Yes Drug Use in Last 12 Months: No Recreational Drug Type: Reports: Benzodiazepines (last abuse around 2014) - Living Situation & Occupation Living situation: Reports: Single, Alone Occupation: Employed ([employer]) ED ROS GENERAL - Review of Systems Review Of Systems: ROS reveals no pertinent complaints other than HPI. - Physical Exam Exam: See Below Exam Limited By: No Limitations General Appearance: Alert, WD/WN, No Apparent Distress Eye Exam: Bilateral Eye: EOMI, Normal Inspection, PERRL Ears: Normal External Exam, Normal Canal, Hearing Grossly Normal Nose: Normal Inspection, Normal Mucosa, No Blood Throat/Mouth: Normal Inspection, Normal Lips, Normal Teeth, Normal Gums, Normal Oropharynx, Normal Voice, No Airway Compromise Head Exam: Atraumatic, Normocephalic Neck: Normal Inspection, Supple, Non-Tender, Full Range of Motion. No: Lymphadenopathy (L), Lymphadenopathy (R) Respiratory/Chest: No Respiratory Distress, Lungs Clear, Normal Breath Sounds, No Accessory Muscle Use Cardiovascular: Normal Peripheral Pulses, Regular Rate, Rhythm, No Edema, No Gallop, No JVD, No Murmur, No Rub GI/Abdominal: Normal Bowel Sounds, Soft, Non-Tender, No Organomegaly, No Distention, No Abnormal Bruit, No Mass (Male) Exam: Deferred Rectal (Males) Exam: Deferred Neuro Exam (Abbreviated): Alert, Oriented, CN II-XII Intact, Normal Cognition, No Motor/Sensory Deficits, Other (Left foot drop) Back Exam: Normal Inspection, Full Range of Motion, NT Extremities: Normal Inspection, Normal Range of Motion, No Pedal Edema, Normal Capillary Refill Psychiatric: Normal Affect Skin Exam: Warm, Dry, Intact, Normal Color, No Rash Course - Vital Signs Last Recorded V/S: Last Vital Signs Temp 37.1 C 01/30/18 11:14 Pulse 104 H 01/30/18 11:14 Resp 20 01/30/18 11:14 BP 156/76 H 01/30/18 11:14 Pulse Ox 99 01/30/18 11:14 - Orders/Labs/Meds Meds: Medications Discontinued Medications Generic Name Dose Route Start Last Admin Trade Name Mahsa PRN Reason Stop Dose Admin Benztropine Mesylate 1 mg 01/30/18 11:36 01/30/18 11:58 Cogentin PO 01/30/18 11:37 1 mg ONETIME STA Administration Haloperidol Lactate 5 mg 01/30/18 11:36 01/30/18 11:59 Haldol IM 01/30/18 11:37 5 mg ONETIME ONE Administration Sodium Chloride 1,000 mls @ 150 mls/hr 01/30/18 11:45 01/30/18 11:58 Normal Saline IV 150 mls/hr ASDIRECTED SU Administration Ondansetron HCl 4 mg 01/30/18 11:36 01/30/18 11:58 Zofran IVPUSH 01/30/18 11:37 4 mg ONETIME ONE Administration - Re-Assessments/Exams Free Text/Narrative Re-Assessment/Exam: 01/30/18 11:38 By history, most of the headaches that the patient gets, which are adequately treated with Advil, and not with responsive to Imitrex, are not migraines, however, the patient describes an episode about 2 months ago where he developed tingling and numbness to the right side his body, followed by headache, which is very compelling for a migraine. The headache that the patient currently presents with has minimal features consistent with a migraine, however, I think it would be worthwhile treating the patient for migraine with IM Haldol, and if that is effective, the patient can be discharged home with a prescription form [facility]. As it has been over one year since the last imaging study of his head, I have ordered a CT scan of his head. 01/30/18 12:24 CT of the head without contrast is read by [facility] as "normal." 01/30/18 12:28 The patient states that he feels much better following IM Haldol. This strongly supports the contention that the patient's headache is migrainous in etiology. I will discharge the patient home with a prescription for rizatriptan. Departure - Departure Time of Disposition: 12:29 Disposition: Home, Self-Care 01 Condition: Good Clinical Impression: Migraine headache without aura - Discharge Information Prescriptions: Rizatriptan Benzoate [Rizatriptan] 1 tab PO Q2H PRN #3 tab.rapdis PRN Reason: Headache Instructions: Migraine Headache, [id number] Referrals: Margarito Nielsen [Primary Care Provider] - Forms: ED Department Discharge, ED Return to Work/School Form Additional Instructions: You were seen in the emergency room for 4 days of a headache with nausea and vomiting. Workup in the ER included a CT scan of your head, which returned as normal. You were treated with IM Haldol, in addition to oral Cogentin, IV Zofran, and IV fluid. Your headache significantly improved following the IM Haldol, indicating that your headache was a migraine. Get plenty of rest today in a dark, quiet place. Stay well hydrated. You may resume your usual activities tomorrow. A note for work for today has been provided. A prescription for the anti-migraine medicine [facility] (rizatriptan) has been sent to [facility]. Dissolve 1 tablet in your mouth at the earliest onset of migraine symptoms. You may repeat after 2 hours, to a maximum of 3 tablets within 24 hours. If this medicine is effective in treating your migraines, you may get additional prescriptions from your PCP, Dr. Nielsen. If any other problems, please do not hesitate to return to the ER.
[2018-01-30] MEDS ORDERED: Sodium Chloride 0.9% 1,000 ML IV SCH (11:45)
--- NOTE | 2018-01-30 15:03 | CT ---
Head CT Technique: Multiple axial sections through the brain were obtained. Intravenous contrast was not utilized. Arian: No prior head CT exam. Findings: Ventricles along with basal cisterns and sulci over the convexities are within normal limits for the patient's age. No abnormal parenchymal densities are seen. No evidence of intracranial hemorrhage. No midline shift or mass effect is seen. Bone window settings were reviewed which show no acute calvarial abnormality. Visualized sinuses are clear. Impression: 1. Nothing acute is seen on noncontrast head CT study. Diagnostic code #1 I agree with preliminary report from [facility], finalized at 01/30/18, 1:11 PM Central Time
== END 2018-01-30 12:50 | disposition home or self-care (01) ==
LOC: JD.ED 10:57
DX: G43.009 Migraine without aura, not intractable, without status migrainosus (principal); J45.909 Unspecified asthma, uncomplicated; K21.9 Gastro-esophageal reflux disease without esophagitis; F17.210 Nicotine dependence, cigarettes, uncomplicated; Z91.013 Allergy to seafood; Z88.8 Allergy status to other drugs, medicaments and biological substances; Z79.899 Other long term (current) drug therapy
CPT/HCPCS: 70450; 96361; 96372; 96374; 99284; A9270; J1630; J2405; J7040

== ENCOUNTER 2018-10-06 18:19 | Emergency (ER) | payer BC, OTHER ==
[2018-10-06 18:34] VITALS: BP 115/75
[2018-10-06] MEDS ORDERED: Ibuprofen 600 MG Tab PO ONE (19:41)
[2018-10-06] MEDS ORDERED: Orphenadrine 100 MG Tab.ER PO STA (19:41)
--- NOTE | 2018-10-06 19:45 | EDM.PDOC ---
ED HPI GENERAL MEDICAL PROBLEM - General Chief Complaint: Head Injury Stated Complaint: HEAD INJURY Time Seen by Provider: 10/06/18 19:10 Source of Information: Reports: Patient, RN Notes Reviewed History Limitations: Reports: No Limitations - History of Present Illness INITIAL COMMENTS - FREE TEXT/NARRATIVE: The patient states that he was struck by a large piece of ice that fell off the roof of his place of work - he estimates about a 10 foot drop - around 13:30 this afternoon as he was returning from lunch. He states that he was not knocked unconscious, and did not fall to the ground, but that ever since he was struck, he has had a headache - a pressure and stinging sensation - felt to the top of his head, where he was struck. He states that he is not confused, but that his thinking seems slower. He denies any other symptoms, such as visual changes, or new tingling, numbness, or weakness. He reports possible photophobia and phonophobia, and he reports some nausea without emesis. He states that his current headache has some components similar to prior migraines , although it is not the same as his usual migraine. The patient states that he took a single Advil around 14:30 this afternoon. He states that he went to the clinic to get evaluated, but that they sent him here. The patient does not have a PCP. He states that he is moving to [place] this coming 10/09/2018. Treatments CHEMICAL LIBRARIAN: Reports: NSAIDS Other Treatments CHEMICAL LIBRARIAN: Motrin at 14:30 Frontal Headache Pain Score (Numeric/FACES): 5 - Related Data Allergies Allergy/AdvReac Type Severity Reaction Status Date / Time shellfish derived Allergy Difficulty Verified 06/30/18 22:40 Breathing bupropion HCl AdvReac Seizure Verified 06/30/18 22:40 [From Wellbutrin] zolpidem tartrate AdvReac Excitabilit Verified 06/30/18 22:40 [From Ambien] y Home Meds: Home Meds . [No Known Home Meds] 10/06/18 [History] Past Medical History Cardiovascular History: Reports: Afib (paroxysmal) Respiratory History: Reports: Asthma (exercise-induced) Gastrointestinal History: Reports: GERD Neurological History: Reports: Migraines, Seizure (alcohol and drug-related), Other (See Below) (Left footdrop following 2014 ICU admission) Psychiatric History: Reports: Addiction (alcohol and benzodiazepines), Anxiety, Bipolar, Depression, Panic Attack, Suicide Attempt - Infectious Disease History Infectious Disease History: Reports: Chicken Pox - Past Surgical History HEENT Surgical History: Reports: Oral Surgery (3 wisdom teeth extracted 2012), Tonsillectomy GI Surgical History: Reports: Cholecystectomy (2014) Social & Family History - Family History Family Medical History: Noncontributory Cardiac: Reports: Hypertension Oncologic: Reports: Lymphoma - Tobacco Use Smoking Status *Q: Current Every Day Smoker Years of Tobacco use: 10 Packs/Tins Daily: 0.5 Packs/Tins Daily Comment: Down from 1 ppd - Caffeine Use Caffeine Use: Reports: Soda - Alcohol Use Alcohol Use History: Yes Date/Time of Last Drink Comment: Alcoholic, currently drinks rarely - Recreational Drug Use Recreational Drug Use: Yes Drug Use in Last 12 Months: No Recreational Drug Type: Reports: Benzodiazepines (last abused 2013) - Living Situation & Occupation Living situation: Reports: Single, Alone 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 ED EXAM, HEAD INJURY - Physical Exam Exam: See Below Exam Limited By: No Limitations General Appearance: Alert, WD/WN, No Apparent Distress Head: Atraumatic (No visible abnormality, such as swelling, erythema, ecchymosis , or abrasion), Normocephalic Eyes: Bilateral Eye: EOMI, Normal Inspection, PERRL Ears: Normal External Exam, Normal Canal, Hearing Grossly Normal, Normal TMs Nose: Normal Inspection Throat/Mouth: Normal Inspection, Normal Lips, Normal Voice, No Airway Compromise Neck: Full Range of Motion, Normal Alignment, Normal Inspection Respiratory: No Respiratory Distress, Lungs Clear, Normal Breath Sounds, No Accessory Muscle Use Cardiovascular: Normal Peripheral Pulses, Regular Rate, Rhythm, No Edema, No Gallop, No JVD, No Murmur, No Rub GI/Abdominal Exam: Normal Bowel Sounds, Soft, Non-Tender, No Organomegaly, No Distention, No Abnormal Bruit, No Mass (Male) Exam: Deferred Rectal (Males) Exam: Deferred Back Exam: Full Range of Motion, Normal Inspection, NT Extremities: Normal Inspection, Normal Range of Motion, No Pedal Edema, Normal Capillary Refill Neurologic: locker room attendant II-XII nml As Tested, No Motor/Sensory Deficits, Alert, Oriented x 3 Skin: Normal Color, Warm/Dry Course - Vital Signs Last Recorded V/S: Last Vital Signs Temp 36.9 C 10/06/18 18:30 Pulse 86 10/06/18 18:30 Resp 16 10/06/18 18:30 BP 115/75 10/06/18 18:30 Pulse Ox 96 10/06/18 18:30 - Orders/Labs/Meds Meds: Medications Discontinued Medications Generic Name Dose Route Start Last Admin Trade Name Mahsa PRN Reason Stop Dose Admin Ibuprofen 600 mg 10/06/18 19:41 10/06/18 19:48 Motrin PO 10/06/18 19:42 600 mg ONETIME ONE Administration Orphenadrine Citrate 100 mg 10/06/18 19:41 10/06/18 19:48 Norflex PO 10/06/18 19:42 100 mg ONETIME STA Administration - Re-Assessments/Exams Free Text/Narrative Re-Assessment/Exam: 10/06/18 19:42 With no loss of consciousness at the time of the event, a normal neurologic exam at this time, and no visible injury, an emergency CT scan of the head is not indicated. I offered to treat the patient for a migraine with IM Haldol, however, patient states that his purpose for coming was just to get checked out , not necessarily to receive any specific treatment. The patient did agree, to receive 3 tablets of ibuprofen and a single tablet of Norflex. I am advising him to take it easy tonight and get plenty of rest. The patient states that he will be moving to [place] this coming Friday, 2018. Departure - Departure Time of Disposition: 19:43 Disposition: Home, Self-Care 01 Condition: Good Clinical Impression: Scalp contusion, Headache - Discharge Information *PRESCRIPTION DRUG MONITORING PROGRAM REVIEWED*: Not Applicable *COPY OF PRESCRIPTION DRUG MONITORING REPORT IN PATIENT [place]: Not Applicable Referrals: PCP,None [Primary Care Provider] - Forms: ED Department Discharge Additional Instructions: You were seen in the emergency room for a headache and confusion after a large chunk of ice fell and struck you on your head this afternoon. On examination, no abnormalities were found. A CT scan of her head was not recommended. Your headache was treated with ibuprofen and the muscle relaxant Norflex. We recommend that you try to relax tonight, and get plenty of rest. You may take [id number] ibuprofen, 2-3 tablets (400-600 mg) every 8 hours , with food, as needed for discomfort. If any other problems, please do not hesitate to return to the ER.
== END 2018-10-06 20:08 | disposition home or self-care (01) ==
LOC: JD.ED 18:19
DX: S00.03XA Contusion of scalp, initial encounter (principal); R51 Headache; F17.210 Nicotine dependence, cigarettes, uncomplicated; Z88.8 Allergy status to other drugs, medicaments and biological substances; Z91.013 Allergy to seafood; Z98.890 Other specified postprocedural states; Z90.49 Acquired absence of other specified parts of digestive tract; W20.8XXA Other cause of strike by thrown, projected or falling object, initial encounter
CPT/HCPCS: 99283; A9270